=== PATIENT | female | born 1940 | race Caucasian/White ===

== ENCOUNTER 2016-08-01 13:48 | Outpatient (CLI) | payer MEDICARE, OTHER ==
[~2016-08-01] VITALS: Ht 162.6 cm; Wt 65.9 kg
[2016-08-01] MEDS ORDERED: COMBIGAN OPHT DR5 ML EACH EYE (14:10)
[2016-08-01] MEDS ORDERED: RISPERDAL2 MG PO (14:10)
[2016-08-01] MEDS ORDERED: NYSTATIN ORAL SU5 ML PO (14:11)
[2016-08-01] MEDS ORDERED: LIDOCAINE 2 %100 ML (14:12)
[2016-08-01] MEDS ORDERED: NEXIUM40 MG PO (14:12)
[2016-08-01] MEDS ORDERED: KLONOPIN0.5 MG PO (14:13)
[2016-08-01] MEDS ORDERED: METOPROLOL PO (14:14)
[2016-08-01 14:23] VITALS: BP 93/54; Ht 162.6 cm; Wt 65.9 kg
--- NOTE | 2016-08-01 14:32 | NUR ---
PROLIA INJECTION TO RIGHT ARM LOT #:[id number] EXP:09/04
== END 2016-08-01 14:48 | disposition home or self-care (01) ==
LOC: D.OPS 13:48
DX: M81.0 Age-related osteoporosis without current pathological fracture (principal)

== ENCOUNTER → 2017-02-14 11:30 | Outpatient (CLI) | payer MEDICARE, OTHER ==
[~2017-02-14] VITALS: Ht 162.6 cm; Wt 65.5 kg
[~2017-02-14 11:30] MED LIST: COMBIGAN OPHT DR5 ML EACH EYE; KLONOPIN0.5 MG PO; LIDOCAINE 2 %100 ML; METOPROLOL PO; NEXIUM40 MG PO; NYSTATIN ORAL SU5 ML PO; RISPERDAL2 MG PO
[2017-02-14 12:13] VITALS: Ht 162.6 cm; Wt 65.5 kg
== END | disposition home or self-care (01) ==
LOC: D.OPS 11:30
DX: M81.0 Age-related osteoporosis without current pathological fracture (principal)

== ENCOUNTER 2017-08-21 13:23 | Outpatient (CLI) | payer MEDICARE, OTHER ==
[~2017-08-21] VITALS: Ht 162.6 cm; Wt 63.6 kg
[2017-08-21 14:08] VITALS: BP 134/50; Ht 162.6 cm; Wt 63.6 kg
== END 2017-08-21 14:19 | disposition home or self-care (01) ==
LOC: D.OPS 13:23
DX: M81.0 Age-related osteoporosis without current pathological fracture (principal)

== ENCOUNTER 2018-03-08 12:40 | Outpatient (CLI) | payer MEDICARE, OTHER ==
[~2018-03-08] VITALS: Ht 162.6 cm; Wt 63.6 kg
[2018-03-08 19:55] VITALS: Ht 162.6 cm; Wt 63.6 kg
== END 2018-03-08 14:05 | disposition home or self-care (01) ==
LOC: D.OPS 12:40
DX: M81.0 Age-related osteoporosis without current pathological fracture (principal); Z01.812 Encounter for preprocedural laboratory examination

== ENCOUNTER → 2018-09-10 13:43 | Outpatient (CLI) | payer MEDICARE, OTHER ==
[~2018-09-10] VITALS: Ht 162.6 cm; Wt 66.8 kg
[2018-09-10 14:04] VITALS: BP 115/49; Ht 162.6 cm; Wt 66.8 kg
== END | disposition home or self-care (01) ==
LOC: D.OPS 13:43
PROVIDERS: ATTEND Family Medicine
DX: M81.0 Age-related osteoporosis without current pathological fracture (principal)